=== PATIENT | female | born 1995 ===

== ENCOUNTER 2021-02-21 07:26 | Inpatient (IN) | payer OTHER ==
[2021-02-21] MEDS ORDERED: LACTATED RINGERS 2,000 ML ONE (07:55)
[2021-02-21] MEDS ORDERED: LACTATED RINGERS 1,000 ML ONE (07:55)
[2021-02-21] MEDS ORDERED: OXYTOCIN DRIP 30,000 MILLIUNITS/500 ML BAG IV ONE (07:55)
[2021-02-21] MEDS ORDERED: AMPICILLIN/NS 2 GM/100 ML 2 GM/100 ML BAG IV ONE ×2 (08:11→08:12)
[2021-02-21] MEDS ORDERED: ePHEDrine SULFATE 50 MG/1 ML INJ IV PRN (08:11)
[2021-02-21] MEDS ORDERED: MINERAL OIL 30 ML ORAL LIQD PO PRN (08:11)
[2021-02-21] MEDS ORDERED: LIDOCAINE (2%) 20 MG/1 ML VIAL 20 ML MDV INFILTRATI ONE ×2 (08:11→13:00)
[2021-02-21] MEDS ORDERED: TERBUTALINE 1 MG/1 ML INJ SUB-Q PRN (08:11)
[2021-02-21] MEDS ORDERED: LACTATED RINGERS 1,000 ML IV SCH (08:15)
[2021-02-21] MEDS: fentaNYL 100 MCG/2 ML INJ IV PRN ×2 (08:20→10:18)
[2021-02-21 08:32] LABS: Hematocrit 35.2 % (30.3-42.9); Hemoglobin 12.1 gm/dl (10.1-14.3); Mean Corpuscular HGB Conc 34 % (30-34); Mean Corpuscular Volume 87 fl (79-97); Platelet Count 323 K/mm3 (140-440); Red Blood Count 4.03 M/mm3 (3.65-5.03); Red Cell Distribution Width 19.8 % (13.2-15.2)
--- NOTE | 2021-02-21 08:33 | History and Physical Report ---
History of Present Illness Date of examination: 02/21/21 Date of admission: 02/21/21 07:26 Chief complaint: Contractions History of present illness: 26 year old presents to L&D with contractions and advanced cervical dilation. Patient received care at [facility] and records are available. LMP 06/08/20. EDC 02/25/21. significant for the following: gestational diabetes (diet controlled), rubella nonimmune, LSIL pap, pyelectasis. labs are as follows: O+, antibody screen negative, rubella nonimmune, hepatitis B surface antigen negative, HIV negative, RPR nonreactive, gonorrhea negative, chlamydia negative, MSAFP negative, pap smear LSIL, GBS negative, 1 hour sugar test 149 (3 hour OGTT: 77, 180, 126, 145). 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 denies: chlamydia, gonorrhea, hepatitis B, herpes, HIV, syphilis, trichomonas Family/Genetic History: none Social history: no significant social history, full code. denies: smoking, alcohol abuse, prescription drug abuse, IV drug use - Obstetrical History Expected Date of Delivery: 02/25/21 Actual Gestation: 39 Week(s) 3 Day(s) : 1 Para: 0 Hx # Term Pregnancies: 0 Number of Pregnancies: 0 Spontaneous Abortions: 0 Induced : 0 Number of Living Children: 0 Medications and Allergies Allergies Allergy/AdvReac Type Severity Reaction Status Date / Time No Known Allergies Allergy Verified 02/21/21 07:57 Home Medications Medication Instructions Recorded Confirmed Last Taken Type Vitamin 1 tab PO DAILY 02/21/21 02/21/21 02/20/21 History Active Meds: Active Medications Ephedrine Sulfate (Ephedrine Sulfate 50 Mg/1 Ml Inj) 10 mg IV Q2M PRN PRN Reason: Hypotension Fentanyl (Fentanyl 100 Mcg/2 Ml Inj) 100 mcg IV Q2H PRN PRN Reason: Pain,Severe (7-10) LABOR PAIN Last Admin: 02/21/21 08:20 Dose: 100 mcg Documented by: Lactated Ringer's (Lactated Ringers) 1,000 mls @ 125 mls/hr IV DIRECT GUEVARA Oxytocin/Sodium Chloride (Pitocin/Ns 30 Unit/500ml) 30 units in 500 mls @ 40 mls/hr IV TITR GUEVARA; Protocol Ampicillin Sodium (Ampicillin/Ns 2 Gm/100 Ml) 2 gm in 100 mls @ 100 mls/hr IV ONCE ONE; Protocol Stop: 02/21/21 09:10 Last Admin: 02/21/21 08:21 Dose: Not Given Documented by: Mineral Oil (Mineral Oil 30 Ml Oral Liqd) 30 ml PO QHS PRN PRN Reason: Constipation Terbutaline Sulfate (Terbutaline 1 Mg/1 Ml Inj) 0.25 mg SUB-Q ONCE PRN PRN Reason: Hyperstimulation/Hypertonicity Review of Systems All systems: negative (contractions) - Vital Signs Vital signs: Vital Signs Temp Pulse Resp BP Pulse Ox 99 F 77 18 128/72 100 02/21/21 07:30 02/21/21 07:30 02/21/21 07:30 02/21/21 07:30 02/21/21 07:30 Temp Pulse Resp BP Pulse Ox 99 F 80 22 124/74 99 02/21/21 07:30 02/21/21 08:22 02/21/21 08:20 02/21/21 08:22 02/21/21 08:21 - Physical Exam Abdomen: Positive: normal appearance, soft. Negative: distention, tenderness, guarding, rigidity Genitourinary (Female): Positive: normal external genitalia, normal perenium. Negative: perineal/vulvar lesions Vagina: Positive: normal moisture Uterus: Positive: enlarged. Negative: tender Anus/Rectum: Positive: normal perianal skin - Obstetrical FHR: category 1 Uterine Contraction Monitor Mode: External Cervical Dilatation: 7 Cervical Effacement Percentage: 100 station: -1 Uterine Contraction Pattern: Regular Uterine Contraction Intensity: Moderate Results Result Diagrams: 02/21/21 07:40 All other labs normal. Assessment and Plan A: at 39 3/7 weeks gestation. Active labor. GBS negative. GDM. P: Admit. EFM. Check blood glucose every 2 hours. Anticipate vaginal .
[2021-02-21] MEDS ORDERED: OXYTOCIN DRIP 30 UNITS/500 ML BAG IV SCH ×2 (09:00→11:00)
[2021-02-21 10:12] LABS: Hematocrit 36.1 % (30.3-42.9); Hemoglobin 11.8 gm/dl (10.1-14.3); Mean Corpuscular HGB Conc 33 % (30-34); Mean Corpuscular Volume 88 fl (79-97); Platelet Count 299 K/mm3 (140-440); Red Blood Count 4.13 M/mm3 (3.65-5.03); Red Cell Distribution Width 12.8 % (13.2-15.2)
[2021-02-21 10:44] LABS: Hepatitis C Virus Antibody Non-Reactive (NonReactive)
[2021-02-21] MEDS: BUTORPHANOL 2 MG/1 ML INJ IV PRN ×2 (12:28→14:27)
[2021-02-21] MEDS ORDERED: hydrALAZINE 20 MG/1 ML INJ IV PRN (12:41)
[2021-02-21] MEDS ORDERED: MAGNESIUM SULFATE 4 GM/100 ML BAG IV ONE ×2 (12:58→13:02)
[2021-02-21] MEDS ORDERED: MAGNESIUM SULFATE 40GM/1000ML 40 GM/1,000 ML BAG IV SCH (13:00)
--- NOTE | 2021-02-21 13:01 | Event Note ---
Date: 02/21/21 Patient has been receiving Pitocin for augmentation of labor. Several elevated blood pressures noted, two were in severe range. Preeclamptic labs ordered. Magnesium sulfate ordered. Patient's nurse notified. notified.
[2021-02-21] MEDS ORDERED: MAGNESIUM SULFATE 40GM/1000ML 40 GM/1,000 ML BAG IV ONE (13:02)
[2021-02-21] MEDS ORDERED: miSOPROStol 200 MCG TAB ONE (13:48)
[2021-02-21 13:56] LABS: Alanine Aminotransferase 9 units/L (7-56); Albumin 3.3 g/dL (3.9-5); BUN/Creatinine Ratio 25; Blood Urea Nitrogen 10 mg/dL (7-17); Calcium 9.1 mg/dL (8.4-10.2); Hemolysis Index 0
[2021-02-21 13:57] LABS: Uric Acid 4.8 mg/dL (3.5-7.6)
[2021-02-21] MEDS ORDERED: miSOPROStol 200 MCG TAB VG ONE (14:00)
--- NOTE | 2021-02-21 14:13 | Event Note ---
Date: 02/21/21 BP's elevated second to pain. Pt does not meet criteria for severe preeclampsia, will d/c magnesium sulfate and monitor BPs closely Daniel Stevenson MD
--- NOTE | 2021-02-21 14:16 | Procedure Note ---
OB Delivery Note - Delivery Date of Delivery: 02/21/21 Surgeon: YUDELKA ALBARRAN - Vaginal Delivery position: OA Intrapartum events: mult.variable deceleratio Delivery induction: none Delivery augmentation: pitocin Delivery monitor: external FHT, external uterine Route of delivery: vacuum extraction Indicators for instrumentation: nonreassuring FHR tracing Delivery placenta: spontaneous Delivery cord: 3 umbilical vessels Episiotomy: midline Delivery repair: vicryl Anesthesia: local Delivery comments: Patient pushed to deliver a viable male over a midline episiotomy. Vacuum was applied at +1 station for multiple variables with poor maternal pushing effort. Vacuum was applied x2 with no excess traction or force used. Maximum pressure was 330 mmHg. With delivery of the head the vacuum was removed. There was no nuchal cord. The anterior shoulder delivered atraumatically and the remainder of the delivery was uncomplicated. Midline episiotomy repaired by Crystal Parker CNM using 2-0 Vicryl without complication and excellent hemostasis. An intact placenta with three-vessel cord delivered spontaneously. Firm fundus, EBL 400 mL. All sponge needle instrument counts are correct x2. Mom and baby to . There were no complications. Daniel Albarran MD
[2021-02-21] MEDS ORDERED: HYDROcodone/ACETAMINOPHEN 5-325 MG TAB PO PRN (14:17)
[2021-02-21] MEDS ORDERED: PROMETHAZINE 25 MG TAB PO PRN (14:17)
[2021-02-21] MEDS ORDERED: KETOROLAC 30 MG/1 ML INJ IV PRN (14:17)
[2021-02-21] MEDS ORDERED: diphenhydrAMINE 25 MG CAP PO PRN (14:17)
[2021-02-21] MEDS ORDERED: PROMETHAZINE 25 MG RECT SUPP PR PRN (14:17)
[2021-02-21] MEDS ORDERED: LANOLIN/ZINC/DIMETHICONE (LANSINOH) 7 GM TP PRN (14:17)
[2021-02-21] MEDS ORDERED: MAGNESIUM HYDROXIDE (MOM) ORAL LIQD UDC PO PRN (14:17)
[2021-02-21] MEDS ORDERED: ACETAMINOPHEN 325 MG TAB PO PRN (14:17)
[2021-02-21] MEDS ORDERED: WITCH HAZEL/ GLYCERIN PAD TP PRN (14:17)
[2021-02-21] MEDS ORDERED: ONDANSETRON 4 MG/2 ML INJ IV PRN (14:17)
[2021-02-21 16:22] LABS: Bilirubin,Urine NEG (Negative); Blood,Urine LG (Negative); Color,Urine Yellow (Yellow); Mucus,Urine FEW /HPF; Protein,Urine <15 mg/dL mg/dL (Negative); Urobilinogen,Urine < 2.0 mg/dL (<2.0)
[2021-02-21 16:23] LABS: Amphetamine Screen,Urine Negative; Benzodiazepines Screen,Urine Negative; Cannabinoid Screen,Urine Negative; Cocaine Screen,Urine Negative; Methadone Screen,Urine Negative; Opiate Screen,Urine Negative
[2021-02-21] MEDS: DOCUSATE SODIUM 100 MG CAP PO SCH (22:14)
[2021-02-22] MEDS: IBUPROFEN 600 MG TAB PO SCH ×4 (00:19→23:40)
[2021-02-22 06:48] LABS: Hematocrit 32.2 % (30.3-42.9); Hemoglobin 10.5 gm/dl (10.1-14.3)
[2021-02-22] MEDS: DOCUSATE SODIUM 100 MG CAP PO SCH ×2 (10:40→23:40)
--- NOTE | 2021-02-22 10:47 | Progress Note ---
Assessment and Plan A: Day 1 GDM A1 Asymptomatic Anemia P: Follow routine orders Advised to increase dietary intake of iron-rich foods Discharge home today per patient request Return to clinic in 6 weeks Subjective - Subjective Date of service: 02/22/21 Principal diagnosis: s/p VAVD; Day 1 Patient reports: appetite normal, voiding normally, pain well controlled, flatus, ambulating normally, other (Denies dizziness, fatigue, or shortness of breath.) [place]: doing well, bottle feeding Objective - Vital Signs Latest vital signs: Vital Signs Temp Pulse Resp BP BP Pulse Ox 02/22/21 08:20 98.7 F 80 18 99/55 98 02/22/21 04:45 98.1 F 91 H 18 97/57 98 02/22/21 00:46 98.0 F 100 H 16 103/54 97 02/21/21 19:59 98.7 F 102 H 20 119/75 100 02/21/21 17:06 99.0 F 97 H 17 117/68 98 02/21/21 16:46 99.9 F H 90 20 115/66 02/21/21 16:45 83 115/66 02/21/21 16:41 92 H 99 02/21/21 16:37 88 113/64 02/21/21 16:36 91 H 99 02/21/21 16:31 85 98 02/21/21 16:26 86 99 02/21/21 16:22 86 115/66 02/21/21 16:21 97 H 99 02/21/21 16:16 81 98 02/21/21 16:11 80 99 02/21/21 16:07 69 116/62 02/21/21 16:06 84 99 02/21/21 16:01 79 98 02/21/21 15:56 83 98 02/21/21 15:52 80 117/60 02/21/21 15:51 81 98 02/21/21 15:46 84 98 02/21/21 15:41 83 99 02/21/21 15:37 83 114/60 02/21/21 15:36 84 98 02/21/21 15:31 84 98 02/21/21 15:26 98.3 F 79 13 116/63 99 02/21/21 15:22 86 116/63 02/21/21 15:21 85 99 02/21/21 15:16 84 98 02/21/21 15:11 79 98 02/21/21 15:07 85 117/64 02/21/21 15:06 86 99 02/21/21 15:01 85 98 02/21/21 14:56 84 98 02/21/21 14:52 100 H 120/68 02/21/21 14:51 105 H 99 02/21/21 14:46 85 97 02/21/21 14:41 84 98 02/21/21 14:37 90 110/58 02/21/21 14:36 91 H 98 02/21/21 14:31 90 100 02/21/21 14:26 97 H 100 02/21/21 14:22 89 119/61 02/21/21 14:21 89 99 02/21/21 14:18 98 F 90 15 113/55 100 02/21/21 14:16 90 97 02/21/21 14:07 97 H 113/55 02/21/21 13:59 70 80 L 02/21/21 13:58 85 02/21/21 13:53 103 H 119/61 02/21/21 13:44 137 H 149/64 02/21/21 13:42 151 H 165/73 100 02/21/21 13:40 134 H 204/107 02/21/21 13:39 92 H 93 02/21/21 13:37 98 H 100 02/21/21 13:32 74 95 02/21/21 13:26 100 H 100 02/21/21 13:23 81 136/80 02/21/21 13:21 76 100 02/21/21 13:16 82 100 02/21/21 13:11 73 100 02/21/21 13:10 82 134/69 02/21/21 13:06 65 100 02/21/21 13:01 64 100 02/21/21 12:56 71 100 02/21/21 12:53 69 143/76 02/21/21 12:51 73 100 02/21/21 12:46 66 137/73 99 02/21/21 12:45 75 145/74 02/21/21 12:44 69 145/70 02/21/21 12:41 68 99 02/21/21 12:38 83 169/69 02/21/21 12:36 61 99 02/21/21 12:31 77 100 02/21/21 12:26 80 100 02/21/21 12:25 78 131/79 02/21/21 12:21 89 100 02/21/21 12:16 100 H 100 02/21/21 12:11 100 H 99 02/21/21 12:09 85 130/60 02/21/21 12:06 95 H 100 02/21/21 12:01 77 100 02/21/21 11:56 77 100 02/21/21 11:54 76 127/58 02/21/21 11:51 81 100 02/21/21 11:46 74 99 02/21/21 11:41 76 99 02/21/21 11:38 80 132/73 02/21/21 11:36 77 99 02/21/21 11:31 77 99 02/21/21 11:26 79 100 02/21/21 11:24 83 166/69 02/21/21 11:21 89 99 02/21/21 11:16 80 99 02/21/21 11:11 90 98 02/21/21 11:09 78 128/71 02/21/21 11:06 79 100 02/21/21 11:01 74 100 02/21/21 10:56 74 100 02/21/21 10:53 82 132/84 02/21/21 10:51 75 99 02/21/21 10:46 80 97 02/21/21 10:42 90 107/56 Intake and Output 02/21/21 02/22/21 02/22/21 22:59 06:59 14:59 Intake Total 120 Output Total 900 1200 Balance -900 -1080 Intake: Intake, Free Water 120 Output: Urine 900 1200 Void 900 1200 Other: Total, Output Amount 900 600 # Voids Void 1 1 - Exam Breasts: Present: normal Cardiovascular: Present: Regular rate, Normal S1, Normal S2 Lungs: Present: Clear to auscultation, Normal air movement Abdomen: Present: normal appearance, soft, normal bowel sounds Uterus: Present: normal, firm, fundal height below umbilicus Extremities: Present: normal - Labs Labs: Abnormal lab results 02/21/21 02/21/21 02/21/21 Range/Units 12:40 12:41 15:20 Sodium 134 L (137-145) mmol/L Carbon Dioxide 20 L (22-30) mmol/L Creatinine 0.4 L (0.6-1.2) mg/dL POC Glucose 110 H (70-105) mg/dL Alkaline Phosphatase 294 H (35-129) units/L Lactate Dehydrogenase 202 H (91-180) units/L Total Protein 6.0 L (6.3-8.2) g/dL Albumin 3.3 L (3.9-5) g/dL
[2021-02-22] MEDS ORDERED: medroxyPROGESTERone ACETATE 150 MG/ML SYRINGE IM ONE (10:52)
--- NOTE | 2021-02-22 10:52 | Discharge Summary ---
Providers - Providers Date of Admission: 02/21/21 07:26 Date of discharge: 02/22/21 Attending physician: YUDELKA ALBARRAN MD Primary care physician: YUEDLKA ALBARRAN MD Hospitalization Reason for admission: active labor Delivery: vacuum extraction Episiotomy: midline Other procedures: none complications: none Discharge diagnosis: IUP at term delivered baby: male Condition at discharge: Good Disposition: DC-01 TO HOME OR SELFCARE Plan - Provider Discharge Summary Activity: routine, no sex for 6 weeks, no heavy lifting 4 weeks, no strenuous exercise Diet: routine Instructions: routine Additional instructions: [] Smoking cessation referral if applicable(refer to patient education folder for contact #) [] Refer to [facility]'s [facility] Booklet Call your doctor immediately for: * Fever > 100.5 * Heavy vaginal bleeding ( >1 pad per hour) * Severe persistent headache * Shortness of breath * Reddened, hot, painful area to leg or breast * Drainage or odor from incision. * Keep incision clean and dry at all times and follow doctor's instructions regarding bathing/showering - Follow up plan Follow up: YUDELKA ALBARRAN MD [Primary Care Provider] - 6 Weeks
[2021-02-22 17:07] LABS: Basophils % (Auto) 0.2 % (0.0-1.8); Eosinophils # (Auto) 0.1 K/mm3 (0.0-0.4); Eosinophils % (Auto) 0.8 % (0.0-4.3); Hematocrit 30.8 % (30.3-42.9); Hemoglobin 10.3 gm/dl (10.1-14.3); Lymphocytes # (Auto) 3.6 K/mm3 (1.2-5.4); Mean Corpuscular HGB Conc 34 % (30-34); Mean Corpuscular Volume 90 fl (79-97); Monocytes # (Auto) 1.2 K/mm3 (0.0-0.8); Platelet Count 271 K/mm3 (140-440); Red Blood Count 3.41 M/mm3 (3.65-5.03); Red Cell Distribution Width 12.9 % (13.2-15.2)
[2021-02-23] MEDS: IBUPROFEN 600 MG TAB PO SCH ×3 (05:27→16:55)
[2021-02-23] MEDS ORDERED: MEASLES, MUMPS & RUBELLA 12,500 UNIT/0.5 ML VACCINE SUB-Q ONE (16:39)
[2021-02-23] MEDS ORDERED: medroxyPROGESTERone ACETATE 150 MG/ML SYRINGE IM ONE (17:07)
[2021-02-23 18:00] VITALS: BP 105/65
[2021-02-24] MEDS ORDERED: MEASLES, MUMPS & RUBELLA 12,500 UNIT/0.5 ML VACCINE SUB-Q ONE ×2 (07:00→16:06)
== END 2021-02-23 17:30 | disposition home or self-care (01) | DRG 807 ==
LOC: LD 07:26 → OB 17:58
PROVIDERS: ADMIT Obstetrics & Gynecology; ATTEND Obstetrics & Gynecology
PROC: 10D07Z6 Extraction of Products of Conception, Vacuum, Via Natural or Artificial Opening (ICD-10-PCS; principal; 2021-02-23)
PROC: 0W8NXZZ Division of Female Perineum, External Approach (ICD-10-PCS; 2021-02-23)
DX: O24.429 Gestational diabetes mellitus in childbirth, unspecified control (principal); Z37.0 Single live birth; Z3A.39 39 weeks gestation of pregnancy; Z20.822 Contact with and (suspected) exposure to COVID-19; D64.9 Anemia, unspecified
CPT/HCPCS: 36415; 59025; 80053; 80307; 81001; 82962; 83036; 83615; 84550; 85014; 85018; 85025; 85027; 86592; 86706; 86762; 86803; 86850; 86900; 86901; 87086; 87806; 90707; 96360; 96361; 96365; 96367; 96368; 96369; 96374; 96375; 96376; G0378; J0595; J2590; J3010; J3475; J7120; U0003